=== PATIENT | male | born 1975 | race Caucasian/White ===

== ENCOUNTER 2019-12-17 17:20 | Emergency (ER) | payer OTHER ==
[2019-12-17 17:29] VITALS: BP 129/80; PULSE 86; RESP 17; TEMP 98.5
--- NOTE | 2019-12-17 17:37 | ED ---
Upper Extremity HPI - General Chief Complaint: Extremity Injury, Upper Stated Complaint: Elbow injury Time Seen by Provider: 12/17/19 17:30 Source: patient Mode of arrival: ambulatory Limitations: no limitations - History of Present Illness Initial Comments: Patient is a 44-year-old male presenting to the emergency department with chief complaint right elbow pain. Patient states several days ago he was walking when he tripped on a floor capri and fell directly on his right elbow. Patient reports there was a skin tear which eventually formed a scar. States he has full range of motion in the elbow. No alleviating or aggravating factors. Patient reports she does get occasional tingling sensation to his fingers but it is not constant. Denies night sweats fevers or chills. Denies swelling. Denies taking medication to alleviate the symptoms. - Related Data Allergies Allergy/AdvReac Type Severity Reaction Status Date / Time No Known Allergies Allergy Verified 12/17/19 17:28 Review of Systems ROS Statement: Those systems with pertinent positive or pertinent negative responses have been documented in the HPI. ROS Other: All systems not noted in ROS Statement are negative. Past Medical History Past Medical History: No Reported History History of Any Multi-Drug Resistant Organisms: None Reported Past Surgical History: No Surgical Hx Reported Past Psychological History: No Psychological Hx Reported Smoking Status: Never smoker Past Alcohol Use History: Occasional Past Drug Use History: None Reported General Exam Limitations: no limitations General appearance: alert, in no apparent distress Head exam: Present: atraumatic, normocephalic, normal inspection Eye exam: Present: normal appearance, PERRL, EOMI Pupils: Present: normal accommodation ENT exam: Present: normal exam, normal oropharynx, mucous membranes moist Neck exam: Present: normal inspection, full ROM Respiratory exam: Present: normal lung sounds bilaterally Cardiovascular Exam: Present: regular rate, normal rhythm, normal heart sounds Extremities exam: Present: full ROM, tenderness (Mild tenderness at the injured site.), normal capillary refill, other (+2 ulnar and radial pulses bilaterally. ). Absent: normal inspection (Heeling injury in the right elbow. No signs of joint swelling.), joint swelling Back exam: Present: normal inspection, full ROM Neurological exam: Present: alert, oriented X3 Psychiatric exam: Present: normal affect, normal mood Skin exam: Present: warm, dry, intact, normal color Course Vital Signs 12/17/19 17:25 Temperature 98.5 F Pulse Rate 86 Respiratory 17 Rate Blood Pressure 129/80 O2 Sat by Pulse 99 Oximetry Medical Decision Making - Medical Decision Making Patient is a 44-year-old male presenting to the emergency department with a denise f complaint of right elbow pain. Patient on exam patient has a healing wound on the right elbow with no signs of septic joint. Compartments are soft. He does have mild tenderness at the site of injury but not anything that would indicate significant infection or injury. X-ray of the right elbow reveals some soft tissue swelling but no signs of a fracture or dislocation. Return parameters were thoroughly discussed the patient was understanding and agreeable. Case discussed with physician. Disposition Clinical Impression: Injury of right elbow, Contusion of elbow, right Disposition: HOME SELF-CARE Condition: Stable Instructions (If sedation given, give patient instructions): Elbow Sprain (ED) Additional Instructions: Apply ice compresses and alternate between Tylenol and Motrin for pain control. Follow-up with orthopedics. Return to emergency department if symptoms worsen. Is patient prescribed a controlled substance at d/c from ED?: No Referrals: Destini Serrano MD [Primary Care Provider] - 1-2 days Galdino Loomis MD [STAFF PHYSICIAN] - 1-2 days Time of Disposition: 18:10
--- NOTE | 2019-12-17 17:54 | XR ---
EXAMINATION TYPE: XR elbow complete RT DATE OF EXAM: 12/17/2019 COMPARISON: NONE HISTORY: Elbow pain TECHNIQUE: 3 views FINDINGS: There is some soft tissue swelling over the olecranon process of the ulna. I see no fractur e nor dislocation. There is no sign of elbow joint effusion. IMPRESSION: Soft tissue swelling. No fracture seen.
== END 2019-12-17 18:22 | disposition home or self-care (01) ==
LOC: EC 17:20
DX: S50.01XA Contusion of right elbow, initial encounter (principal); W01.0XXA Fall on same level from slipping, tripping and stumbling without subsequent striking against object, initial encounter; Y93.01 Activity, walking, marching and hiking
CPT/HCPCS: 99283

== ENCOUNTER 2024-01-25 09:51 | Emergency (ER) | payer OTHER ==
--- NOTE | 2024-01-25 11:59 | ED ---
Wound/Laceration HPI - General Chief Complaint: Wound/Laceration Stated Complaint: Right thumb laceration Time Seen by Provider: 01/25/24 11:58 Source: patient, RN notes reviewed Mode of arrival: ambulatory Limitations: no limitations - History of Present Illness Initial Comments: 48-year-old male presenting with laceration on right thumb prior to arrival. States he was cleaning a kitchen knife and accidentally sliced himself with a knife. Last tetanus is unknown. Denies blood thinners. Denies numbness or tingling. - Related Data Previous Rx's Medication Instructions Recorded Cephalexin [Keflex] 500 mg PO Q12HR 5 Days #10 cap 01/25/24 Allergies Allergy/AdvReac Type Severity Reaction Status Date / Time No Known Allergies Allergy Verified 12/17/19 17:28 Review of Systems ROS Statement: Those systems with pertinent positive or pertinent negative responses have been documented in the HPI. ROS Other: All systems not noted in ROS Statement are negative. Past Medical History Past Medical History: No Reported History History of Any Multi-Drug Resistant Organisms: None Reported Past Surgical History: No Surgical Hx Reported Past Psychological History: No Psychological Hx Reported Past Alcohol Use History: Occasional Past Drug Use History: None Reported General Exam - General Exam Comments Initial Comments: Visual Physical Exam Vital signs reviewed General: Well-appearing, nontoxic, no acute distress. Head: Normocephalic, atraumatic Eyes: PERRLA, EOMI ENT: Airway patent Chest: Nonlabored breathing Skin: No visual rash, normal skin tone Neuro: Alert and oriented 3 Musculoskeletal: No gross abnormalities Limitations: no limitations General appearance: alert, in no apparent distress Head exam: Present: atraumatic, normocephalic, normal inspection Right Forearm Wrist exam: Present: normal inspection, full ROM. Absent: tenderness, swelling Hand Wrist exam: Present: full ROM, laceration (5 cm laceration on distal aspect of ventral right thumb with subcutaneous tissue protruding. There is active bleeding. Full range of motion of DIP joint. Cap refill less than 2 seconds. Full sensation). Absent: normal inspection, tenderness Vascular: Present: normal capillary refill. Absent: vascular compromise Neurological exam: Present: alert Psychiatric exam: Present: normal affect, normal mood Skin exam: Present: warm, dry, intact, normal color. Absent: rash Course Vital Signs 01/25/24 10:12 Temperature 98 F Pulse Rate 75 Respiratory 20 Rate Blood Pressure 136/70 O2 Sat by Pulse 97 Oximetry Procedures - Laceration Laceration #1 Consent Obtained: verbal consent Indication: laceration Site: upper extremity Size (cm): 5 Description: linear Depth: simple, single layer Anesthetic Used: lidocaine 1%, without epi Anesthesia Technique: local infiltration Amount (mls): 3 Pre-repair: wound explored, irrigated extensively, deep structures intact Type of Sutures: nylon Size of Sutures: 4-0 Number of Sutures: 4 Technique: simple, interrupted Patient Tolerated Procedure: well, no complications Additional Comments: Neurovascularly intact status post procedure Medical Decision Making - Medical Decision Making I completed the quick note portion of this chart signed Elina Mcmullen PA-C Was pt. sent in by a medical professional or institution ([facility], [employer]ION [employer]ENT, urgent care, hospital, or senior care...) When possible be specific @ -No Did you speak to anyone other than the patient for history (EMS, parent, family, police, friend...)? What history was obtained from this source @ -No Did you review nursing and triage notes (agree or disagree)? Why? @ -I reviewed and agree with nursing and triage notes Were old charts reviewed (outside hosp., previous admission, EMS record, old EKG, old radiological studies, urgent care reports/EKG's, senior care records)? Report findings @ -No old charts were reviewed Differential Diagnosis (chest pain, altered mental status, abdominal pain women, abdominal pain men, vaginal bleeding, weakness, fever, dyspnea, syncope, headache, dizziness, GI bleed, back pain, seizure, CVA, palpatations, mental health, musculoskeletal)? @ -Differential Musculoskeletal Muscular strain, contusion, ligament sprain, fracture, arthritis, septic arthritis, bursitis, cellulitis, muscle spasm, nerve compression, DVT, arterial occlusion, herpes zoster, electrolyte abnormality, tumor.... This is not meant to be in all inclusive list EKG interpreted by me (3pts min.). @ -None X-rays interpreted by me (1pt min.). @ -None done CT interpreted by me (1pt min.). @ -None done U/S interpreted by me (1pt. min.). @ -None done What testing was considered but not performed or refused? (CT, X-rays, U/S, labs)? Why? @ -Imaging not performed due to low suspicion for fracture What meds were considered but not given or refused? Why? @ -None Did you discuss the management of the patient with other professionals (professionals i.e. , PA, MARINE EXTENSION AGENT, lab, RT, psych nurse, clinical social worker, cushion maker, teacher, disability liaison officer, business case analyst)? Give summary @ -No Was smoking cessation discussed for >3mins.? @ -No Was critical care preformed (if so, how long)? @ -No Were there social determinants of health that impacted care today? How? (Homelessness, low income, unemployed, alcoholism, drug addiction, transportation, low edu. Level, literacy, decrease access to med. care, halfway, rehab)? @ -No Was there de-escalation of care discussed even if they declined (Discuss DNR or withdrawal of care, Hospice)? DNR status @ -No What co-morbidities impacted this encounter? (DM, HTN, Smoking, COPD, CAD, Cancer, CVA, ARF, Chemo, Hep., AIDS, mental health diagnosis, sleep apnea, morbid obesity)? @ -None Was patient admitted / discharged? Hospital course, mention meds given and route, prescriptions, significant lab abnormalities, going to OR and other pertinent info. @ -Patient was discharged. Patient was seen and evaluated for right thumb laceration prior to arrival. Neurovascularly intact. Wound was thoroughly irrigated and 4 sutures placed and tolerated well. Neurovascularly intact status post procedure. Tetanus was updated. Wound care discussed. Advise follow-up in 7 days for suture removal. Prescribed Keflex for antibacterial prophylaxis. Return parameters discussed. Case discussed with my attending Dr. Zepeda. Patient discharged in stable condition. Undiagnosed new problem with uncertain prognosis? @ -No Drug Therapy requiring intensive monitoring for toxicity (Heparin, Nitro, Insulin, Cardizem)? @ -No Were any procedures done? @ -4 sutures placed Diagnosis/symptom? @ -Laceration of right thumb Acute, or Chronic, or Acute on Chronic? @ -Acute Uncomplicated (without systemic symptoms) or Complicated (systemic symptoms)? @ -Uncomplicated Side effects of treatment? @ -No Exacerbation, Progression, or Severe Exacerbation? @ -No Poses a threat to life or bodily function? How? (Chest pain, USA, CT, pneumonia, PE, COPD, DKA, ARF, appy, cholecystitis, CVA, Diverticulitis, Homicidal, Suicidal, threat to staff... and all critical care pts) @ -No Disposition Clinical Impression: Laceration of right thumb Disposition: HOME SELF-CARE Condition: Stable Instructions (If sedation given, give patient instructions): Finger Laceration (ED) Additional Instructions: Follow-up in 7 days for suture removal. Keep wound dry for 24 hours, then you may gently wash affected area with antibacterial soap and water. Please take Keflex as prescribed. Please return to the Emergency Department if symptoms worsen or any other concerns. Prescriptions: Cephalexin [Keflex] 500 mg PO Q12HR 5 Days #10 cap Is patient prescribed a controlled substance at d/c from ED?: No Referrals: None,Stated [Primary Care Provider] - 1-2 days Time of Disposition: 13:04
[2024-01-25] MEDS: DIPH,PERTUS(ACELL)TETVAC-LF 0.5 ML VIAL IM ONE (12:10)
[2024-01-25] MEDS: LIDOCAINE 1% INJ 10MG/ML (20 ML MDV) SQ ONE (12:12)
[2024-01-25 13:12] VITALS: BP 122/79; PULSE 62; RESP 16; TEMP 984
== END 2024-01-25 13:11 | disposition home or self-care (01) ==
LOC: EC 09:51
DX: S61.011A Laceration without foreign body of right thumb without damage to nail, initial encounter (principal); Z23 Encounter for immunization; W26.0XXA Contact with knife, initial encounter
CPT/HCPCS: 90715; 99282; 90471; 12002; J2001